=== PATIENT | female | born 1965 ===

== ENCOUNTER 2024-01-20 09:03 | Day surgery (SDC) | payer OTHER ==
[~2024-01-20] VITALS: Ht 177.8 cm; Wt 85.0 kg
[~2024-01-20 09:03] MED LIST: Atropine Sulfate 0.1 MG/ML 10ML SYR ONE; Glycopyrrolate 0.2 MG/ML 1MLVIAL ONE; Lactated Ringer's 1,000 ML IV ONE; Lidocaine 1%-Epineph 1:100000 20 ML MDV ONE; Lidocaine 2% 5 ML SDV ONE; Lidocaine HCl/Pf 1% 5 ML VIAL ONE; Methylene Blue 1% 100 MG/10 ML VIAL ONE; Ondansetron HCl 2 MG / ML 2ML Vial ONE; ePHEDrine Sulfate 50 MG/ML 1ML Injection ONE; propofoL 50 ML IV ONE
[2024-01-20] MEDS ORDERED: GABA100 (09:48)
[2024-01-20] MEDS ORDERED: ATOR40TA (09:48)
[2024-01-20] MEDS ORDERED: Prozac20 MG (09:48)
[2024-01-20] MEDS ORDERED: Lactated Ringer's 1,000 ML IV ONE (10:54)
[2024-01-20] MEDS ORDERED: propofoL 50 ML IV ONE (11:45)
== END 2024-01-20 12:24 | disposition home or self-care (01) ==
LOC: ORSCSDS 09:03
PROVIDERS: Surgery
PROC: 0DBM8ZX Excision of Descending Colon, Via Natural or Artificial Opening Endoscopic, Diagnostic (ICD-10-PCS; principal; 2024-01-20 10:15)
PROC: 0DBK8ZX Excision of Ascending Colon, Via Natural or Artificial Opening Endoscopic, Diagnostic (ICD-10-PCS; principal; 2024-01-20 10:15)
PROC: 0DBP8ZX Excision of Rectum, Via Natural or Artificial Opening Endoscopic, Diagnostic (ICD-10-PCS; principal; 2024-01-20 10:15)
DX: K62.5 Hemorrhage of anus and rectum (principal); R19.5 Other fecal abnormalities; D12.2 Benign neoplasm of ascending colon; D12.4 Benign neoplasm of descending colon; D12.8 Benign neoplasm of rectum; K62.1 Rectal polyp; Z79.899 Other long term (current) drug therapy; Z87.891 Personal history of nicotine dependence
CPT/HCPCS: 88305; J0461; J2001; J2405; J2704; J7120; Q9968